=== PATIENT | female | born 1985 | race Hispanic/Latino ===

== ENCOUNTER 2017-03-02 05:29 | Inpatient (IN) | payer MEDICAID ==
[~2017-03-02] VITALS: Ht 147.3 cm; Wt 94.3 kg
[~2017-03-02 05:29] MED LIST: ASC500 PO; FES300 PO; IBUP-1152 PO; PER5 PO; PREN1TAB47 PO; VIS25 PO
[2017-03-02] MEDS ORDERED: Hemorrhage Kit, Post Partum XX ONE ×2 (05:35→09:40)
[2017-03-02] MEDS ORDERED: Sodium Citrate-Citric Acid 15 mL Solution PO SCH (05:35)
[2017-03-02] MEDS ORDERED: Oxytocin 10 Unit/mL Inj IM PRN ×2 (05:35→09:40)
[2017-03-02] MEDS ORDERED: Lactated Ringer's 1,000 ML IV SCH (05:35)
[2017-03-02] MEDS ORDERED: CeFAZolin Inj 2 GM in IV Premix 1 EACH IV SCH (05:35)
[2017-03-02] MEDS ORDERED: Carboprost 250 mCg/mL Inj IM PRN ×2 (05:35→09:40)
[2017-03-02] MEDS ORDERED: Methylergonovine 0.2 mg/mL Inj IM PRN ×2 (05:35→09:40)
--- NOTE | 2017-03-02 07:25 | HP ---
[address] [address] HISTORY AND PHYSICAL PATIENT: CAROLIN JAMES : 1985 MR#: [id number] ADMIT: 03/02/2017 JOB ID: [id number] [facility] NOTE: DATE: 03/02/2017 SUBJECTIVE: The patient has been followed prenatally in my office, see record for details from [facility]. The patient's estimated date of confinement is March 23, 2017, placing her at 37 weeks of gestation on the day of admission. The patient has previously undergone two sections and thus was scheduled for repeat section at approximately 39 weeks of gestation. However, she has developed intrahepatic cholestasis of , characterized as severe itching (particularly at night), involving especially the palms of her hands and soles of her feet, and she has received some relief using ursodeoxycholic acid. There has been very mild elevation at times of AST, ALT and alkaline phosphatases, and although total serum bile acids have been normal, they have gradually climbed from initially 11.0 up to most recent level of 17.4, all above the 10 threshold which is consistent with intrahepatic cholestasis of . I have spoken with Perinatology (Dr. Nenita Graff) at the [facility], and we have agreed that this condition is present and she recommended delivery at 37 weeks of gestation. Nonstress tests have been accomplished twice weekly up to delivery time and these have been reactive. Repeat section was thus moved up to March 02, 2017, at 37 weeks of gestation. The patient has understood risks of surgery, which include bleeding, infection, injury to the urinary tract and bowel, anesthetic risks, wound problems, postoperative pain, postoperative deep venous thrombosis and pulmonary embolus, etc. She has had all of her questions answered, knowing that no guarantees may be stated or implied, and she has signed informed consent for surgery. She does realize that her risks may be greater due to morbid obesity (BMI between 43-44). Note also that she has requested tubal excision at the time of , if feasible, yet tubal ligation if excision is not possible. She has understood that these procedures are meant to be permanent and she definitely does not want to be again. She realizes there is no guarantee that tubal ligation would not fail, although not likely. In summary, then, the patient will be admitted to [facility] on March 02, 2017, on which day she will undergo repeat low transverse section and bilateral tubal excision, if feasible, although bilateral tubal ligation will be undertaken if salpingectomies are not possible. PHYSICAL EXAMINATION: On admission, height 58 inches, weight 208 pounds. Last blood pressure in the office 120/74. Neck: No thyromegaly. Lungs: Clear to auscultation and percussion. Heart: Regular in rate and rhythm. Abdomen: Fundal height 47 cm. Positive heartbeat at 146. scarring noted. The abdominal wall is thick. Pelvic examination deferred. IMPRESSION: 1. A 37 week . 2. Prior section x2, now for scheduled repeat section. 3. Desires sterilization, with planned bilateral salpingectomies although bilateral tubal ligation will be accomplished if tubal excision is not possible. 4. Intrahepatic cholestasis of , using ursodeoxycholic acid, having undergone nonstress tests twice weekly, and this condition is the indication for early delivery at 37 weeks. 5. Morbid obesity, with BMI between 43-44. 6. Anterior placenta, difficult to sonographically identify old uterine scar, although most likely placental location ending just above the site of the scar. 7. Marginal umbilical cord insertion into the placenta. 8. Mild anemia, having used vitamin and iron supplementation (hematocrit 34.0 on February 23, 2017). 9. History of depression. 10. History of chlamydia, and also "atypical" vaginal infection, note negative chlamydia and GC studies during this . 11. Surgical history: a. Reproductive history-- x2. b. Left foot surgery at [age] year of age. 12. History of concussion while playing basketball (2009). 13. No known drug allergies. 14. Family history of hypertension (father), diabetes type 2 (father), thyroid condition (mother), stroke (father), lung cancer and stomach cancer. PLAN: The patient will be admitted to [facility] on March 02, 2017, on which day she will undergo repeat low transverse section plus bilateral tubal excision or tubal ligation.
[2017-03-02 07:31] LABS: BASOPHILS % (AUTO) 0.3 % (0-3); MONOCYTES % (AUTO) 7.1 % (4-12); Mean Corpuscular Hemoglobin 26.8 pg (27.0-35.0); Mean Corpuscular Volume 83.2 fL (81-100); NEUTROPHILS % (AUTO) 67.1 % (40-74); Platelet Count 288 bil/L (150-400)
[2017-03-02] MEDS ORDERED: Phenylephrine/NS-PF 100 mCg/mL 5 mL Syringe IVPUSH PRN (08:35)
[2017-03-02] MEDS ORDERED: EPHEDrine Sulfate 50 mg/mL Inj IVPUSH PRN (08:35)
[2017-03-02] MEDS ORDERED: Ondansetron 2 mg/mL 2 mL Inj IVPUSH PRN (08:35)
[2017-03-02] MEDS ORDERED: Dexamethasone 4 mg/mL Inj IVPUSH PRN (08:35)
[2017-03-02] MEDS ORDERED: HYDROmorphone 1 mg/mL Inj IVPUSH PRN (08:35)
[2017-03-02] MEDS ORDERED: Morphine PF 1 mg/mL 10 mL Inj INTRATHEC ONE (08:35)
[2017-03-02] MEDS ORDERED: fentaNYL-PF 50 mCg/mL 2 mL Inj IVPUSH PRN (08:35)
[2017-03-02] MEDS ORDERED: Atropine 0.4 mg/mL Inj IV PRN (08:35)
[2017-03-02] MEDS ORDERED: MetoCLOpramide 5 mg/mL 2 mL Inj IVPUSH PRN (08:35)
--- NOTE | 2017-03-02 08:38 | PCM.HPANE ---
Patient Data Surgeon Admitting Provider:Nasim Arizmendi MD Attending Provider:Nasim Arizmendi MD Primary Care Physician:Nopcp Other Provider:Levy Wakefield Anesthesia Reason for Visit repeat section with tubal repeat section with tubal Ht/WT & BMI Body Mass Index Allergies Coded Allergies: peanut (Verified Allergy, Unknown, 04/14/11) Past Anesthesia History Anesthesia History: Denies:: Abnormal Airway, Anesthesia Reactions, Difficult Intubation, Fam Anesthesia Reaction, Fam Malignant Hypertherm, Malignant Hyperthermia Medications Active Scripts oxyCODone/APAP-Expunged, Do Not Renew! (oxyCODone/Apap 5/325mg-Expunged, Do Not Renew) Tablet Po Q3h Prn #40 Prov:Ritchie Foster MD 09/04/13 IBUPROFEN-Expunged Drug, Do Not Renew! 800 Mg [id number] Mg PO Q6H PRN #40 Prov:Ritchie Foster MD 09/04/13 Ferrous Sulfate-Expunged Drug, Do Not Renew! (Feosol-Expunged Drug, Do Not Renew !)325 Mg [id number] Mg PO BIDWM #60 Prov:Ritchie Foster MD 09/04/13 Ascorbic Acid-Expunged Drug, Do Not Renew! (Vitamin C-Expunged Drug, Do Not Renew!)500 Mg [id number] Mg PO DAILYWM #60 Prov:Ritchie Foster MD 09/04/13 Reported Medications hydrOXYzine Ese-Expunged Drug, Do Not Renew! (Vistaril-Expunged Drug, Do Not Renew!)25 Mg Dnldzit47 Mg PO PRN 09/02/13 Vit/Fe Fumarate/Fa-Expunged Drug, Do (-Expunged Drug, Do Not Renew!)1 Tab Tablet1 Po Daily 04/14/11 History History of ENT Problems?: No HEENT History: Denies:: Abnormal Airway Cataracts Difficult Intubation Dysphagia Glaucoma Hearing Problem Sinus Problem TMJ Denture Type: None Teeth Condition: Within Normal Limits Hx of Heart Problems?: No Cardiovascular History: Denies:: AICD Abdominal Aortic Aneurism Atrial Fibrillation Cardiac Surgery Chest Pain Congestive Heart Failure Coronary Artery Disease Edema Heart Murmur Hypertension Irregular Heartbeat Pacemaker Peripheral Vascular Rheumatic Fever Thrombophlebitis Valvular Heart Disease Hx of Respiratory Problem?: No Respiratory History: Denies:: Asthma COPD Chest Surgery Cough Dyspnea Emphysema Hemoptysis Oxygen Administration Pneumonia Pulmonary Embolism Tuberculosis Use of C-PAP Machine Use of Inhalers / NEBS Hx Neurologic Problems?: No Neurological History: Denies:: Alzheimer's Disease CVA Dementia Dizziness Headaches Multiple Sclerosis Parkinson's Disease Peripheral Neuropathy Seizures TIA Hx of GI Problems?: No Gastrointestinal History: Denies:: Cirrhosis Diverticulitis Gall Bladder Disease Gastroesphageal Reflux Gastrointestinal Bleeding Heartburn Hepatitis Hiatal Hernia Liver Disease Rectal Bleeding Hx of Problems?: No Genitourinary History: Denies:: HX of Hemodialysis Kidney Stones Urinary Tract Infection HX of Peritoneal Dialysis: No Female Hx: Positive for:: Currently Denies:: Endometriosis Pelvic Inflammatory Problems with Breasts? Skin History: Denies:: History Skin Disorders? Pressure Ulcers Hx Musculoskeletal Problems?: No Musculoskeletal History: Denies:: Back Injury Degenerative Joint Fibromyalgia Joint Replacement Musculoskeletal Trauma Myasthenia Gravis Osteoarthritis Rheumatoid Arthritis Systemic Lupus Hx of Psycho/Social Problems?: No Psycho Social History: Denies:: Anxiety Bipolar Disorder Hx Depression Suicide Attempt Hx Surgeries?: No Hx Any Other Health Problems?: No Other History: Denies:: Cancer Endocrine Disease Hospitalization Thyroid Disease History Blood Transfusions: Denies:: Accept Blood Products? Blood Transfuse Reaction Blood Transfusions Hx Diabetes: No Smoking Status: Never Smoker Stop/Bang Risk Assessment Category Category 1A: Patient has history of documented sleep apnea, and HAS NOT received any narcotic, sedative or anesthesia administration during this stay. Category 1B: Patient has history of documented sleep apnea, and HAS received any narcotic , sedative or anesthesia administration during this stay Category 2: Patient has SUSPECTED Obstructive Sleep Apnea, and HAS received any narcotic , sedative or anesthesia administration during this stay. Category 3: Patient has SUSPECTED Obstructive Sleep Apnea and HAS NOT received narcotic, sedative or anesthesia administration during this stay. Category 4: Outpatient in Procedural Areas with known sleep apnea or who screen positive for High Risk via the STOP/BANG questionnaire. Exam Exam General Appearance: Alert, Oriented X3, Cooperative, No Acute Distress HEENT/AIRWAY: MP 2, Neck Movement (FROM), Mouth Opening (3 FBMO) Lungs: Clear to Auscultation, Normal Air Movement Heart: Exam Unremarkable, Regular Rate/Rhythm, No Murmurs/Rubs/Gallops Meds/Labs/Diagnostics Admission Meds Current Medications Lactated Ringer's (Lr) 1,000 ml @ 125 mls/hr Q8H IV Last administered on t 06:32; Start 03/02/17 at 05:35; Stop 03/02/17 at 13:34 Labs Test 03/02/17 06:06 Plan Impression Patient chart reviewed, patient interviewed and anesthestic plan with risks, benefits, and alternatives discussed, and informed consent obtained. NPO per Anesth. Guidelines: Yes ASA Physical Status: ASA2 Mod Systemic Disease Anesthetic Plan: SAB Bene/Risks/Altern/Consents: Yes HP Complete Prior to Induction: Yes Ej Martin MD Mar 02, 2017 07:23
[2017-03-02] MEDS ORDERED: LANOlin HPA 7 Gm Ointment TOPICAL PRN (09:40)
[2017-03-02] MEDS ORDERED: Influenza (Adult) Vaccine 0.5 mL Syringe IM ONE (09:40)
[2017-03-02] MEDS ORDERED: TdaP Vaccine 0.5 mL Inj IM ONE (09:40)
[2017-03-02] MEDS ORDERED: Measles-Mumps-Rubella Vaccine 0.5 mL Inj SUBQ ONE (09:40)
[2017-03-02] MEDS ORDERED: Sodium Chloride LOK Flush 10 mL Syringe IVFLUSH PRN (09:40)
[2017-03-02] MEDS ORDERED: hydrOXYzine Pamoate 25 mg Capsule PO PRN (09:40)
[2017-03-02] MEDS ORDERED: Oxytocin 30 Units/500 mL LR 30 UNITS in IV Premix 1 EACH IV PRN (09:40)
--- NOTE | 2017-03-02 09:48 | PCM.ANEP1 ---
Post Anesthesia PACU Phase 1 Assessment Anesthetic Administered: SAB Level of Alertness: Awake, talking LUJAN's with Equal Strength: Yes (except for distribution of SAB) Pain: No Nausea or Vomiting: Yes (some initial nausea - resolved quickly) CV Function & Hydration Stable: Yes Airway Device: na Oxygen Delivery: Room Air Lungs: Clear to Auscultation, Normal Air Movement Dermatome Level: T10 (Umbilicus) PACU Phase 2 Assessment Complications: No Follow up Care: N/A Patient Instructions Provided: N/A Ej Martin MD Mar 02, 2017 09:48
[2017-03-02] MEDS ORDERED: Phenylephrine/NS 100 mCg/mL 10 mL Syringe IVPUSH ONE (12:18)
[2017-03-02] MEDS ORDERED: Morphine PF 1 mg/mL 10 mL Inj ONE (12:18)
[2017-03-02] MEDS ORDERED: Ondansetron 2 mg/mL 2 mL Inj ONE (12:18)
[2017-03-02] MEDS ORDERED: Oxytocin 10 Unit/mL Inj ONE (12:18)
[2017-03-02] MEDS ORDERED: EPHEDrine/NS 5 mg/mL 5 mL Syringe ONE (12:18)
[2017-03-02] MEDS: Lactated Ringer's 1,000 ML IV SCH (15:56)
[2017-03-02] MEDS: CeFAZolin Inj 2 GM in IV Premix 1 EACH IV SCH ×2 (15:57→23:26)
--- NOTE | 2017-03-03 04:26 | OP ---
[address] [address] OPERATIVE REPORT PATIENT: CAROLIN JAMES : 1985 MR#: [id number] ADMIT: 03/02/2017 JOB ID: [id number] DATE OF SURGERY: 03/02/2017 SURGEON: On the case is Nasim Arizmendi MD. GRAPHIC ART DESIGNER: Saroj Roa MD. ANESTHESIA: Spinal. PREOPERATIVE DIAGNOSIS(ES): 1. A 37 week . 2. Intrahepatic cholestasis of . 3. Prior sections x2, for scheduled repeat section. 4. Desires sterilization by tubal excision. 5. Morbid obesity. POSTOPERATIVE DIAGNOSIS(ES): 1. A 37 week . 2. Intrahepatic cholestasis of . 3. Prior sections x2, for scheduled repeat section. 4. Desires sterilization by tubal excision. 5. Morbid obesity. PROCEDURES PERFORMED: 1. Repeat low transverse section. 2. Bilateral tubal excision (bilateral salpingectomy). INDICATIONS FOR SURGERY: This patient has reached 37 weeks of gestation and is brought in for repeat section a little early due to intrahepatic cholestasis of . She also has requested tubal excision at the time of section, a reasonable request, being certain that she does not want to have additional children. Note that she signed informed consent for procedures. FINDINGS AT SURGERY: Fetus was in vertex presentation, and amniotic fluid was clear. Baby was active, crying and vigorous immediately upon delivery. Note that fallopian tubes and ovaries were normal in appearance. At procedure's close, baby had been delivered and was doing very well. Fallopian tubes had been removed. There was no internal bleeding occurring at any site. Urine was clear. Instrument, needle and sponge counts were all found to be correct. PROCEDURE IN DETAIL: The patient was placed in supine position on the operating table after activation of spinal anesthesia. She was repositioned in the left lateral tilt position and Damico catheter was placed. She was prepped and draped and the usual sterile manner and appropriate time-out was taken. A Pfannenstiel incision was made through skin, subcutaneous tissues and fascial layer, with electrocautery utilized where needed. Rectus muscles then from the overlying fascia and the rectus muscles then in midline and the peritoneal cavity was carefully entered. The lower uterine segment was then inspected and found to be narrow, and there was significant levorotation. Incision was then made in the lower uterine segment with extension into the lower fundal all on the left simply to allow for adequate room for delivery. This lower uterine segment incision was carried down to the amniotic sac. It was then ruptured and clear fluid was recovered. Head was then brought through the incision, then shoulders, body and extremities, and baby was active and crying immediately upon delivery. Cord was clamped and cut, and was taken to the warmer for further nurse management. There was no delay in clamping the cord due to significant lower uterine segment hypervascularity noted at the time of incision; thus, with ongoing bleeding. Cord blood was obtained for routine studies and placenta with membranes were then massaged intact. Uterus was exteriorized to facilitate closure of the uterine incision. The cervix was noted to be 0.5 to 1 cm dilated. The uterine cavity was gauze curettaged. Uterine incision was then closed in running, locking using #1 chromic suture and complete hemostasis achieved. Attention was then directed to the fallopian tubes and ovaries, which were inspected. Left fallopian tube was then grasped with Sewickley clamps and mesosalpinx was divided where ever possible simply with electrocautery. Claudia clamp was then placed across the proximal fallopian tube at its juncture with the uterus and then an additional Claudia clamp was placed across the vasculature within the distal tubal attachment structures which were then divided, as was the fallopian tube severed from its attachment point to the uterus. The left fallopian tube was thus completely excised and the pedicles doubly ligated with 0 chromic suture and 2-0 silk suture. Hemostasis was noted to be complete. The same procedures were then performed on the right side, once again with entire tube removed, as well as complete hemostasis achieved. Light cautery was applied to the cut ends of the fallopian tube. The cul-de-sac area was then irrigated and suctioned of blood and clots and fluid. Uterus was then returned to the abdominal cavity and then final inspection of the tubal excision sites and the lower uterine segment demonstrated no bleeding. Bladder area was fine. Instrument, needle and sponge counts were appropriate. Abdominal wall closure could then begin. Rectus muscles were drawn together at the midline using interrupted stitches of #1 chromic suture. Subfascial plane was then inspected and cautery applied where needed. The fascial layer was then closed in a running manner using #1 PDS. Subcutaneous tissues were then extensively irrigated and cautery applied where needed. Subcutaneous tissue space was then reapproximated using 3-0 Vicryl suture in an interrupted stitch fashion. Skin incision was then closed with tarun. Dressing was applied and uterus was expressed of blood and clot. Procedure was complete. Patient was taken to her room for recovery. ESTIMATED BLOOD LOSS: 600 cc. COMPLICATIONS: None. PROGNOSIS: Good for surgical recovery. [facility]
[2017-03-03 05:56] LABS: Mean Corpuscular Hemoglobin 26.7 pg (27.0-35.0); Mean Corpuscular Volume 83.8 fL (81-100)
[2017-03-03] MEDS: oxyCODONE-Acetamin 5-325 mg Tablet PO PRN ×4 (09:16→21:05)
--- NOTE | 2017-03-03 15:20 | PATH ---
SURGICAL PATHOLOGY Attending Physician:Nasim Arizmendi M.D CASE STATUS: Signed Out PATIENT NAME: CAROLIN JAMES PID: [id number] : 1985 DATE COLLECTED:03/02/2017 15:58 SPECIMEN: 1: Fallopian Tube, Sterilization 2: Fallopian Tube, Sterilization CLINICAL HISTORY: C SECTION, STERILIZATION 1. LEFT FALLOPIAN TUBE 2. RIGHT FALLOPIAN TUBE FINAL DIAGNOSIS: 1. 2.SEGMENTS OF LEFT AND RIGHT FALLOPIAN TUBES (STERILIZATION PROCEDURE): NO SIGNIFICANT PATHOLOGIC CHANGE. ICD10 Z30.2 GROSS DESCRIPTION: The specimen is received in 2 containers not labeled as to the fixative and labeled with the patient's name. 1). The specimen is sublabeled "left fallopian tube" and consists of a 7.0 x 1.2 x 1.0 CM cylindrical shaped portion of tissue. The specimen is inked blue. 4 fraud representative sections are submitted in cassette 1A. 2). The specimen is sublabeled "right fallopian tube" and consists of a 6.5 x 1.5 x 1.0 CM cylindrical-shaped portion of tissue. The specimen is inked blue. 4 fraud representative sections are submitted in cassette 2A. 03/02/2017 DAC MICRO DESCRIPTION: See diagnosis. ICD-9 CODES: CPT CODES: 1: 42368 2: 49863 Electronically Signed Out Raman Easley MD [facility], [place] [address] Technical component performed at [facility], [address] [place] [address] Ave[address], [place], [address]
--- NOTE | 2017-03-03 21:23 | PROG NOTE ---
[address] [address] PROGRESS NOTE PATIENT: CAROLIN JAMES : 1985 MR#: [id number] ADMIT: 03/02/2017 JOB ID: [id number] DATE: 03/03/2017, 1200 hours. This patient underwent repeat section on March 02, 2017. She also underwent bilateral salpingectomy for sterilization. During the postoperative/ timeframe, she did well, with very reasonable pain control, acceptable bleeding, excellent urine output, ambulating, and voiding. Blood pressure has been on the lower side, with systolic BP in the 90s at times and diastolics in the upper 40s and 50s at times. Pulse has been normal without tachycardia, and with reasonable bleeding and good urine output and normal pulse, there has been no specific concern regarding hypovolemia-associated hypotension. Hemoglobin was down a point from predelivery, expected drop on the basis of intravenous fluid hemodilution and with blood losses experienced at section. The patient has no leg pain nor shortness of breath today, although note that she did seem to do some breath holding and breathing characteristic of sleep apnea during the night, as reported by her , although he has not noticed this at home. We have discussed this in detail, potential value in sitting up or someone in bed while sleeping and/or lying on her side, and we would also see if Respiratory Therapy has anything to add. Note that the combination of surgery, anesthesia, pain and pain medication could potentially have contributed to postoperative symptomatology suggestive of sleep apnea. PLAN: Continue postoperative/ care. Anticipate discharge home tomorrow. SATANM
[2017-03-03 21:47] VITALS: RESP 16; O2SAT 97
[2017-03-04] MEDS: oxyCODONE-Acetamin 5-325 mg Tablet PO PRN ×4 (01:18→13:41)
[2017-03-04] MEDS: CeFAZolin Inj 2 GM in IV Premix 1 EACH IV SCH (08:30)
--- NOTE | 2017-03-04 08:55 | PCM.DIOB ---
Obstetrical Disch Instruction Dates of Hospitalization Date of Hospital Admission Mar 02, 2017 at 05:29 Providers Admitting Physician: Nasim Arizmendi MD Primary Care Physician: Justin Attending Physician: Nasim Arizmendi MD Discharge Diagnosis Problems: (1) Status: Acute ICD Code: Z33.1 (2) Sterilization Status: Acute ICD Code: Z30.2 (3) Intrahepatic cholestasis of Status: Acute ICD Code: O26.619 Diet Discharge Diet: No restrictions Activity Discharge Activity-General: Pelvic Rest for 6 weeks, No lifting >10 pounds for 4-6 weeks Dressing and Incisional Care Dressing Care: Allow Steri Stripes to fall off Hygiene: May shower Follow Up Plan Follow-up appointment: Weeks (Follow up in 2 and in 6 weeks for / postoperative checkups.) Call your provider for: Fever or Chills, Shortness of breath, Heavy vaginal bleeding, Red painful breasts Nasim Arizmendi MD Mar 04, 2017 08:55
[2017-03-04] MEDS ORDERED: FERR-83 PO (09:04)
[2017-03-04] MEDS ORDERED: OXYC1TAB24 PO (09:04)
[2017-03-04] MEDS ORDERED: IBUP-1827 PO (09:04)
[2017-03-04] MEDS ORDERED: DOCU-41 PO (09:04)
[2017-03-04] MEDS: Lactated Ringer's 1,000 ML IV SCH (09:36)
[2017-03-04 14:45] VITALS: BP 105/60; PULSE 87; RESP 19
--- NOTE | 2017-03-04 19:45 | DIS ---
[address] [address] DISCHARGE SUMMARY PATIENT: CAROLIN JAMES : 1985 MR#: [id number] ADMIT: 03/02/2017 JOB ID: [id number] DIS: 03/04/2017 DISCHARGE DIAGNOSIS: 1. A thirty-seven week , delivered. 2. Prior section x2, now status post repeat . 3. Desired sterilization by bilateral tubal excision, accomplished. 4. Morbid obesity. PROCEDURES PERFORMED DURING HOSPITALIZATION: 1. Repeat low transverse section. 2. Bilateral salpingectomy. 3. Spinal Anesthesia HOSPITAL COURSE: The patient underwent repeat low transverse section plus bilateral salpingectomy at her request at 37 weeks of gestation, early in the setting of intrahepatic cholestasis of . During the timeframe the patient did well, with stable vitals, noting that blood pressure was a little on the low side although the patient was not dizzy, pulse was normal, there was no excessive bleeding, and urine output was good. She remained afebrile. Note that she was anemic, with hemoglobin about 9.9 preop and 8.9 on the first postoperative/ day. The patients drop was about what would have been expected. Otherwise, the patient ambulated, voided, had no leg pain or shortness of breath, she handled baby well, and again it was noted that bleeding as well as pain management were reasonable. The patient's did notice that on the first night following the surgery the patient seemed to hold her breath and then wake up somewhat and move about and start breathing, all suggestive of sleep apnea. O2 saturations, however, remained okay and neither the patient or her reported a history of sleep apnea. I requested a respiratory therapist, who evaluated the patient, and we agreed that the patient probably had an element of sleep apnea postop, perhaps pushed over the edge by narcotics postop, although apparently not a recurring problem on the second postoperative night. These things were all discussed with the patient and there could be consideration for a sleep study postop, to be orchestrate per family physician if deemed appropriate. Of course, weight loss would be encouraged, which could well eliminate the increased risks of sleep apnea recurrence in the future. The patient was interested in going home on the second postoperative/ day. Hooper removed per nurse, with benzoin and Steri-Strip application. DISCHARGE PROGRAM: The patient will call p.r.n. heavy bleeding or fever or wound problem, yet otherwise she will follow up at 2 and at 6 weeks for postoperative/ checkups. She will observe pelvic rest and not do any heavy lifting for six weeks. DISCHARGE MEDICATIONS: Include Percocet, ibuprofen, ferrous sulfate, and Colace. Prescriptions written. Note that the patient will notify the family physician's office of sleep apnea likely event on the first postoperative night and family physician will determine whether sleep study would be appropriate. In the meantime, the patient will be encouraged to lose weight for many health reasons. SATNAM
== END 2017-03-04 17:30 | disposition home or self-care (01) | DRG 540 ==
LOC: FBC 05:29 → EDSTATUS 07:15
PROVIDERS: ADMIT Obstetrics & Gynecology; ATTEND Obstetrics & Gynecology
PROC: 0UT70ZZ Resection of Bilateral Fallopian Tubes, Open Approach (ICD-10-PCS; 2017-03-02)
PROC: 10D00Z1 Extraction of Products of Conception, Low, Open Approach (ICD-10-PCS; principal; 2017-03-02 07:15)
DX: O26.62 Liver and biliary tract disorders in childbirth (principal); K83.1 Obstruction of bile duct; O99.214 Obesity complicating childbirth; Z68.41 Body mass index [BMI] 40.0-44.9, adult; Z3A.37 37 weeks gestation of pregnancy; Z37.0 Single live birth; O34.211 Maternal care for low transverse scar from previous cesarean delivery; E66.01 Morbid (severe) obesity due to excess calories; Z30.2 Encounter for sterilization